=== PATIENT | male | born 1960 | race Caucasian/White ===

== ENCOUNTER → 2016-04-01 | Outpatient (CLI) | payer OTHER | LOC: M LAB 12:06 | PROVIDERS: ATTEND Family Medicine Addiction Medicine | DX: R32 Unspecified urinary incontinence (principal) ==

== ENCOUNTER 2016-05-12 08:45 | Outpatient (RCR) | payer OTHER | END 2016-05-13 | LOC: M OT 08:45 | PROVIDERS: ATTEND Orthopaedic Surgery | DX: Z51.89 Encounter for other specified aftercare (principal); S62.326A Displaced fracture of shaft of fifth metacarpal bone, right hand, initial encounter for closed fracture; X58.XXXA Exposure to other specified factors, initial encounter; Y92.9 Unspecified place or not applicable; Y93.9 Activity, unspecified; Y99.9 Unspecified external cause status ==

== ENCOUNTER → 2016-06-19 | Outpatient (CLI) | payer OTHER ==
--- NOTE | 2016-06-19 16:44 | REP ---
RIGHT HAND, FOUR VIEWS: HISTORY: Pain. COMPARISON: 01/28/2016 There is a healing fracture of the 5th metacarpal. The fracture is faintly seen. There is no acute fracture or dislocation. The joint spaces are normal in appearance. IMPRESSION: Healing fracture of the 5th metacarpal. Signed by Maxi Cody MD 06/19/2016 04:57 P
== END ==
LOC: M WUC 16:04
PROVIDERS: ATTEND Physician Assistant
DX: M25.541 Pain in joints of right hand (principal)

== ENCOUNTER 2016-11-20 16:17 | Emergency (ER) | payer OTHER ==
[~2016-11-20] VITALS: Ht 177.8 cm; Wt 84.1 kg
[2016-11-20 16:18] VITALS: BP 137/88
[2016-11-20] MEDS ORDERED: SERT-155 (16:30)
[2016-11-20] MEDS ORDERED: MAPA325T2 (16:30)
[2016-11-20] MEDS ORDERED: NAPR500T PO (16:57)
[2016-11-20] MEDS ORDERED: CYCL10TA PO (16:57)
== END 2016-11-20 17:15 | disposition home or self-care (01) ==
LOC: M ED 16:17
DX: S39.011A Strain of muscle, fascia and tendon of abdomen, initial encounter (principal); Z72.0 Tobacco use; X50.9XXA Other and unspecified overexertion or strenuous movements or postures, initial encounter; Y92.89 Other specified places as the place of occurrence of the external cause; Y93.89 Activity, other specified; Y99.9 Unspecified external cause status

== ENCOUNTER → 2016-11-27 | Outpatient (CLI) | payer MEDICAID, OTHER ==
[~2016-11-27] MED LIST: CYCL10TA PO; MAPA325T2; NAPR500T PO; SERT-155
== END ==
LOC: M SMT 09:28
PROVIDERS: ATTEND Nurse Practitioner Women's Health
DX: R39.15 Urgency of urination (principal)

== ENCOUNTER → 2016-12-02 | Outpatient (CLI) | payer OTHER, MEDICAID ==
--- NOTE | 2016-12-03 05:53 | REP ---
RENAL AND BLADDER ULTRASOUND: Real-time sonographic evaluation of the kidneys performed and demonstrates both kidneys to be normal in size and echotexture, right kidney measuring 12.1 x 5.6 x 4.9 cm and left kidney 11.4 x 4.9 x 6.3 cm. There is no hydronephrosis bilaterally. There is no renal mass or nephrolithiasis. Urinary bladder measures 7.0 x 8.7 x 7.4 cm with no mass or calculus. The volume is 236 mL. Post void residual is 185 mL. There are ureteral jets in the urinary bladder with Doppler color evaluation. IMPRESSION: Negative renal ultrasound. No mass or calculus is seen in the bladder. There is moderate post void residual. Signed by Ramos Vance MD 12/03/2016 09:40 A
== END ==
LOC: M SMT 14:46
PROVIDERS: ATTEND Nurse Practitioner Women's Health
DX: R39.15 Urgency of urination (principal)

== ENCOUNTER 2017-02-14 12:53 | Emergency (ER) | payer OTHER, MEDICAID ==
[~2017-02-14] VITALS: Ht 177.8 cm; Wt 88.6 kg
[2017-02-14] MEDS ORDERED: AMLO5TAB2 PO (13:04)
[2017-02-14] MEDS ORDERED: diphenhydrAMINE INJ 50MG/ML VIAL (J1200) IV STA (14:33)
[2017-02-14] MEDS ORDERED: METOCLOPRAMIDE INJ 10MG/2ML VIAL (J2765) IV ONE (14:45)
[2017-02-14] MEDS ORDERED: NS 1,000 ML IV ONE (14:45)
[2017-02-14 14:57] LABS: BASO # 0.1 10^3/uL (0.0-0.2); BASO % 0.4 % (0.0-1.0); EOS # 0.1 10^3/uL (0.0-0.50); EOS % 0.7 % (0.0-3.0); IMMATURE GRANULOCYTE % 0.4 % (0-0); LYMPH # 2.4 10^3/uL (1.5-4.5); LYMPH % 17.8 % (24.0-44.0); MEAN CORPUSCULAR HEMOGLOBIN 31.3 pg (27.0-33.0); MEAN CORPUSCULAR HGB CONC 34.4 g/dl (32.0-36.5); MONO % 7.5 % (0.0-5.0); NEUTROPHILS % 73.2 % (36.0-66.0); PLATELET COUNT, AUTOMATED 250 10^3/uL (150-450); RED CELL DISTRIBUTION WIDTH 14.1 % (11.5-14.5); WHITE BLOOD COUNT 13.7 10^3/uL (4.0-10.0)
--- NOTE | 2017-02-14 15:07 | REP ---
CT Head without contrast HISTORY: Altered mental status COMPARISON: 03/16/2012 There is no intraparenchymal hemorrhage, acute infarct, mass or midline shift. The ventricular system is normal in appearance. There is no extra cerebral collection. There is no fracture. The visualized sinuses are clear. IMPRESSION: There is no intracranial lesion. Signed by Maxi Cody MD 02/14/2017 02:59 P
[2017-02-14 15:27] LABS: ALBUMIN/GLOBULIN RATIO 1.25 (1.00-1.93); ALKALINE PHOSPHATASE 85 U/L (45-117); ALT/SGPT 31 U/L (12-78); ANION GAP 6 MEQ/L (8-16); AST/SGOT 19 U/L (7-37); BILIRUBIN,DIRECT < 0.1 MG/DL (0.0-0.2); BILIRUBIN,TOTAL 0.4 MG/DL (0.2-1.0); BLOOD UREA NITROGEN 21 MG/DL (7-18); CALCIUM LEVEL 8.7 MG/DL (8.5-10.1); CARBON DIOXIDE LEVEL 30 MEQ/L (21-32); CHLORIDE LEVEL 107 MEQ/L (98-107); CREATININE FOR GFR 0.99 MG/DL (0.70-1.30); GLOMERULAR FILTRATION RATE > 60.0 (>56); GLUCOSE, FASTING 101 MG/DL (70-105); POTASSIUM SERUM 4.6 MEQ/L (3.5-5.1); SODIUM LEVEL 143 MEQ/L (136-145); TOTAL PROTEIN 7.2 GM/DL (6.4-8.2)
[2017-02-14] MEDS ORDERED: KETOROLAC 30 MG/ML VIAL (J1885) IV ONE (15:30)
[2017-02-14] MEDS ORDERED: REGL10TA6 PO (15:51)
[2017-02-14 16:27] VITALS: BP 142/93
== END 2017-02-14 16:30 | disposition home or self-care (01) ==
LOC: M ED 12:53
DX: R51 Headache (principal); I10 Essential (primary) hypertension; Z79.899 Other long term (current) drug therapy; F17.210 Nicotine dependence, cigarettes, uncomplicated
CPT/HCPCS: 70450; 80048; 80076; 84443; 85025; 94760; 96374; 96375; 99284; J1200; J1885; J2765

== ENCOUNTER → 2017-02-26 | Outpatient (REF) | payer OTHER, MEDICAID ==
[~2017-02-26] MED LIST changes: +AMLO5TAB2 PO; +REGL10TA6 PO
[2017-02-26 15:29] LABS: ALBUMIN 4.1 GM/DL (3.2-5.2); ALBUMIN/GLOBULIN RATIO 1.28 (1.00-1.93); ALKALINE PHOSPHATASE 87 U/L (45-117); ALT/SGPT 45 U/L (12-78); ANION GAP 6 MEQ/L (8-16); AST/SGOT 24 U/L (7-37); BILIRUBIN,TOTAL 0.4 MG/DL (0.2-1.0); BLOOD UREA NITROGEN 13 MG/DL (7-18); CALCIUM LEVEL 9.1 MG/DL (8.5-10.1); CARBON DIOXIDE LEVEL 29 MEQ/L (21-32); CHLORIDE LEVEL 104 MEQ/L (98-107); CHOLESTEROL LEVEL 258 MG/DL (<200); CREATININE FOR GFR 1.01 MG/DL (0.70-1.30); GLOMERULAR FILTRATION RATE > 60.0 (>56); GLUCOSE, FASTING 79 MG/DL (70-105); POTASSIUM SERUM 4.3 MEQ/L (3.5-5.1); SODIUM LEVEL 139 MEQ/L (136-145); TOTAL PROTEIN 7.3 GM/DL (6.4-8.2); TRIGLYCERIDES LEVEL 277 MG/DL (<150)
== END ==
LOC: M LAB REF 14:50
PROVIDERS: ATTEND Family Medicine Addiction Medicine
DX: E78.5 Hyperlipidemia, unspecified (principal); I10 Essential (primary) hypertension

== ENCOUNTER 2018-06-07 08:28 | Emergency (ER) | payer MEDICAID, OTHER ==
[~2018-06-07] VITALS: Ht 177.8 cm; Wt 93.2 kg
[2018-06-07 08:28] VITALS: BP 146/86
[~2018-06-07 08:28] MED LIST changes: -AMLO5TAB2 PO; +AMLO5TAB6 PO; +NAPR-837 PO; -NAPR500T PO
[2018-06-07] MEDS ORDERED: ATOR1TAB21 (08:34)
[2018-06-07] MEDS ORDERED: LISI10TA4 (08:34)
[2018-06-07] MEDS ORDERED: IPRATROPIUM 0.5MG/ALBUTEROL 2.5MG INH SOL UD 3ML (DUONEB)(J7620) NEB ONE (09:30)
[2018-06-07] MEDS ORDERED: GI COCKTAIL 50ML BTL(HYOSCYAMINE/MAALOX/LIDOCAINE VISCOUS)(1:3:1) PO ONE (09:30)
--- NOTE | 2018-06-07 09:38 | REP ---
Chest x-ray: Two views. History: Abdomen pain. Comparison study: September 14, 2015. Findings: The lungs remain slightly hyperinflated but clear. There are small bullae in the apices. No infiltrate is seen. Pleural angles are sharp. Heart size is normal. There are mild degenerative changes in the thoracic spine. Impression: No active disease. Electronically Signed by Bob Mayes MD 06/07/2018 09:30 A
[2018-06-07 09:52] LABS: BASO # 0.1 10^3/uL (0.0-0.2); BASO % 0.4 % (0.0-1.0); EOS # 0.1 10^3/uL (0.0-0.50); EOS % 0.9 % (0.0-3.0); HEMATOCRIT 44.5 % (42.0-52.0); LYMPH # 2.7 10^3/uL (1.5-4.5); MEAN CORPUSCULAR HGB CONC 33.7 g/dl (32.0-36.5); MONO # 0.8 10^3/uL (0.0-0.8); MONO % 6.7 % (0.0-5.0); NEUTROPHILS % 68.7 % (36.0-66.0); PLATELET COUNT, AUTOMATED 220 10^3/uL (150-450); WHITE BLOOD COUNT 11.6 10^3/uL (4.0-10.0)
[2018-06-07 10:24] LABS: ALBUMIN 3.7 GM/DL (3.2-5.2); ALT/SGPT 23 U/L (12-78); BILIRUBIN,DIRECT < 0.1 MG/DL (0.0-0.2); BILIRUBIN,TOTAL 0.2 MG/DL (0.2-1.0); BLOOD UREA NITROGEN 13 MG/DL (7-18); CALCIUM LEVEL 9.1 MG/DL (8.5-10.1); CARBON DIOXIDE LEVEL 29 MEQ/L (21-32); CHLORIDE LEVEL 107 MEQ/L (98-107); CPK CREATINE PHOSPHOKINASE 160 U/L (39-308); CREATININE FOR GFR 0.96 MG/DL (0.70-1.30); GLOMERULAR FILTRATION RATE > 60.0 (>56); GLUCOSE, FASTING 92 MG/DL (70-100); LIPASE 354 U/L (73-393); MB/CK RELATIVE INDEX 0.75 (< OR =4); POTASSIUM SERUM 4.4 MEQ/L (3.5-5.1); SODIUM LEVEL 141 MEQ/L (136-145); TOTAL PROTEIN 6.9 GM/DL (6.4-8.2); TROPONIN I < 0.02 NG/ML (< 0.10)
[2018-06-07] MEDS ORDERED: PEPC1TAB5 PO (10:33)
[2018-06-07] MEDS ORDERED: SUCR1SS PO (10:33)
[2018-06-07] MEDS ORDERED: ALBU17IN2 INH (10:34)
--- NOTE | 2018-06-07 21:09 | ECGEPIP ---
Stationary ECG Study [facility] [place] - ED Test Date: 2018-06-07 Pat Name: TAMARA GURROLA Department: Room: - Gender: M [address] Project Manager: : [id number] Requested By: Rick Melgar Order Number: [id number] Reading MD: Emilie Tsai Measurements Intervals [place] Rate: 48 P: 16 LA: 169 QRS: 18 QRSD: 105 T: 16 QT: 408 QTc: 368 Interpretive Statements SINUS BRADYCARDIA LOW VOLTAGE DELAYED R PROGRESSION DECREASED RATE 04/10/14 Electronically Signed On 06-07-2018 21:09:44 EDT by Emilie Tsai
== END 2018-06-07 10:59 | disposition home or self-care (01) ==
LOC: M ED 08:28
DX: J06.9 Acute upper respiratory infection, unspecified (principal); R00.1 Bradycardia, unspecified; I10 Essential (primary) hypertension; F17.200 Nicotine dependence, unspecified, uncomplicated; Z91.14 Patient's other noncompliance with medication regimen; Z79.899 Other long term (current) drug therapy

== ENCOUNTER → 2018-08-02 | Outpatient (REF) | payer OTHER ==
[~2018-08-02] MED LIST changes: +ALBU17IN2 INH; +ATOR1TAB21; +LISI10TA4; +PEPC1TAB5 PO; +SUCR1SS PO
[2018-08-02 19:31] LABS: BASO # 0.1 10^3/uL (0.0-0.2); BASO % 0.3 % (0.0-1.0); EOS # 0.1 10^3/uL (0.0-0.50); EOS % 0.6 % (0.0-3.0); HEMATOCRIT 46.4 % (42.0-52.0); HEMOGLOBIN 15.8 g/dl (13.5-17.5); LYMPH # 2.6 10^3/uL (1.5-4.5); LYMPH % 17.8 % (24.0-44.0); MEAN CORPUSCULAR HEMOGLOBIN 31.1 pg (27.0-33.0); MEAN CORPUSCULAR HGB CONC 34.1 g/dl (32.0-36.5); MEAN CORPUSCULAR VOLUME 91.3 fl (80.0-96.0); MONO # 0.8 10^3/uL (0.0-0.8); MONO % 5.4 % (0.0-5.0); NEUTROPHILS % 75.6 % (36.0-66.0); PLATELET COUNT, AUTOMATED 246 10^3/uL (150-450); RED BLOOD COUNT 5.08 10^6/uL (4.30-6.10); WHITE BLOOD COUNT 14.5 10^3/uL (4.0-10.0)
[2018-08-02 20:29] LABS: ALBUMIN 4.2 GM/DL (3.2-5.2); ALT/SGPT 34 U/L (12-78); BILIRUBIN,TOTAL 0.4 MG/DL (0.2-1.0); BLOOD UREA NITROGEN 12 MG/DL (7-18); CALCIUM LEVEL 9.7 MG/DL (8.5-10.1); CARBON DIOXIDE LEVEL 26 MEQ/L (21-32); CHLORIDE LEVEL 106 MEQ/L (98-107); CHOLESTEROL LEVEL 269 MG/DL (<200); CREATININE FOR GFR 0.94 MG/DL (0.70-1.30); FREE T4 0.97 NG/DL (0.76-1.46); GLOMERULAR FILTRATION RATE > 60.0 (>56); GLUCOSE, FASTING 121 MG/DL (70-100); HDL CHOLESTEROL 37 MG/DL (>40); LDL CHOLESTEROL 189 MG/DL (<100); NON-HDL-C 232 MG/DL; POTASSIUM SERUM 4.1 MEQ/L (3.5-5.1); SODIUM LEVEL 139 MEQ/L (136-145); TOTAL PROTEIN 7.1 GM/DL (6.4-8.2); TRIGLYCERIDES LEVEL 213 MG/DL (<150)
[2018-08-02 21:23] LABS: TOTAL 25(OH) VITAMIN D 13.1 NG/ML (30.0-100.0)
[2018-08-02 21:59] LABS: HEMOGLOBIN A1c 5.7 %
[2018-08-05 00:07] LABS: Lyme Disease IgG/IgM Antibodie <0.91 ISR (0.00-0.90); Lyme Disease IgM Ab Quantitati <0.80 index (0.00-0.79)
== END ==
LOC: M LAB REF 16:42
PROVIDERS: ATTEND Family Medicine
DX: Z13.228 Encounter for screening for other metabolic disorders (principal); Z12.5 Encounter for screening for malignant neoplasm of prostate

== ENCOUNTER → 2019-01-25 | Outpatient (REF) | payer OTHER, MEDICAID ==
[~2019-01-25] MED LIST changes: -ALBU17IN2 INH; +PROV108A INH; -SERT-155; +SERT50TA29
[2019-01-25 12:50] LABS: ALBUMIN 3.8 GM/DL (3.2-5.2); ALT/SGPT 43 U/L (12-78); BILIRUBIN,TOTAL 0.3 MG/DL (0.2-1.0); BLOOD UREA NITROGEN 14 MG/DL (7-18); CALCIUM LEVEL 8.8 MG/DL (8.5-10.1); CARBON DIOXIDE LEVEL 27 MEQ/L (21-32); CHLORIDE LEVEL 105 MEQ/L (98-107); CHOLESTEROL LEVEL 224 MG/DL (<200); CHOLESTEROL RISK RATIO 4.571 (<5); CREATININE FOR GFR 0.88 MG/DL (0.70-1.30); GLOMERULAR FILTRATION RATE > 60.0 (>56); GLUCOSE, FASTING 94 MG/DL (70-100); HDL CHOLESTEROL 49 MG/DL (>40); LDL CHOLESTEROL 130 MG/DL (<100); NON-HDL-C 175 MG/DL; POTASSIUM SERUM 3.6 MEQ/L (3.5-5.1); SODIUM LEVEL 140 MEQ/L (136-145); TOTAL PROTEIN 6.6 GM/DL (6.4-8.2); TRIGLYCERIDES LEVEL 223 MG/DL (<150)
[2019-01-25 13:31] LABS: HEMOGLOBIN A1c 5.8 %
== END ==
LOC: M LAB REF 12:05
PROVIDERS: ATTEND Family Medicine
DX: R73.03 Prediabetes (principal); E78.5 Hyperlipidemia, unspecified

== ENCOUNTER → 2019-02-04 | Outpatient (CLI) | payer OTHER ==
--- NOTE | 2019-02-04 12:09 | REP ---
MRI lumbar spine: Indication: Pulmonary nodule. Metastatic workup. Low back pain. Comparison: CT scan dated 02/20/2016. Technique: Multiplanar short and long TR sequences of the lumbar spine were obtained without IV Gadolinium. Findings: There is mild straightening of the lumbar lordosis. Sclerotic focus within the superior aspect of L1 is stable compared to the previous study. No worrisome marrow signal is present. The visualized cord is normal. Disc desiccation and disc space narrowing are present throughout. No significant paraspinal soft tissue abnormalities are detected. L1/L2: There is no disc herniation or significant spinal canal / neural foraminal narrowing. L2/L3: There is a diffuse disc bulge. Bilateral facet arthropathy is present. There is mild narrowing of the spinal canal and bilateral neural foramina. L3/L4: There is a posterior central disc protrusion superimposed on a diffuse disc bulge. Mild bilateral facet arthropathy is present. There is no nerve root impingement. Overall mild narrowing of the spinal canal and neural foramina is present. L4/L5: Diffuse disc bulge, most apparent anteriorly and bilateral facet arthropathy are present with mild to moderate recess and bilateral neural foraminal narrowing. Mild bilateral facet arthropathy is present. L5/S1: There is a far right lateral disc protrusion which does contact the exiting right L5 nerve root. Mild diffuse disc bulge is otherwise noted with mild spinal canal and left neural foraminal narrowing. Impression: Far right lateral L5/S1 disc herniation. Additional multilevel degenerative sequelae as described. Electronically Signed by Guanako Kirby DO 02/04/2019 12:00 P
== END ==
LOC: M RAD 10:00
PROVIDERS: ATTEND Family Medicine
DX: M51.27 Other intervertebral disc displacement, lumbosacral region (principal); M51.86 Other intervertebral disc disorders, lumbar region; M51.36 Other intervertebral disc degeneration, lumbar region

== ENCOUNTER → 2019-04-25 | Outpatient (REF) | payer OTHER, MEDICAID | LOC: M LAB REF 18:25 | PROVIDERS: ATTEND Physician Assistant | DX: L72.9 Follicular cyst of the skin and subcutaneous tissue, unspecified (principal) ==

== ENCOUNTER 2019-08-05 09:25 | Emergency (ER) | payer OTHER, MEDICAID ==
[~2019-08-05] VITALS: Ht 177.8 cm; Wt 90.7 kg
[~2019-08-05 09:25] MED LIST changes: +CYCL-707 PO; -CYCL10TA PO; -MAPA325T2; +MAPA325T8
[2019-08-05 09:26] VITALS: BP 130/98
[2019-08-05] MEDS ORDERED: AMLO10TA5 (09:37)
--- NOTE | 2019-08-05 10:36 | REP ---
LEFT HAND, FOUR VIEWS: There is a fracture at the anterior base of the 5th middle phalanx, seen on the lateral view. There is no other evidence of acute fracture or dislocation. Electronically Signed by Ramos Vance MD 08/05/2019 11:00 A
== END 2019-08-05 10:31 | disposition home or self-care (01) ==
LOC: M ED 09:25
DX: S62.657A Nondisplaced fracture of middle phalanx of left little finger, initial encounter for closed fracture (principal); W10.8XXA Fall (on) (from) other stairs and steps, initial encounter; Y92.098 Other place in other non-institutional residence as the place of occurrence of the external cause; I10 Essential (primary) hypertension; F41.9 Anxiety disorder, unspecified; F32.9 Major depressive disorder, single episode, unspecified; E78.9 Disorder of lipoprotein metabolism, unspecified; Z79.899 Other long term (current) drug therapy

== ENCOUNTER → 2019-09-23 | Outpatient (REF) | payer OTHER, MEDICAID ==
[~2019-09-23] MED LIST changes: +AMLO1TAB24 PO; +AMLO1TAB25; -AMLO5TAB6 PO
[2019-09-23 12:21] LABS: BASO # 0.1 10^3/uL (0.0-0.2); BASO % 0.7 % (0.0-1.0); EOS # 0.1 10^3/uL (0.0-0.5); EOS % 1.3 % (0.0-3.0); HEMATOCRIT 47.6 % (42.0-52.0); HEMOGLOBIN 15.7 g/dl (13.5-17.5); LYMPH # 2.2 10^3/uL (1.5-5.0); LYMPH % 21.7 % (24.0-44.0); MEAN CORPUSCULAR HEMOGLOBIN 30.5 pg (27.0-33.0); MEAN CORPUSCULAR VOLUME 92.4 fl (80.0-96.0); MONO # 0.8 10^3/uL (0.0-0.8); MONO % 8.2 % (0.0-5.0); NEUTROPHILS # 6.8 10^3/uL (1.5-8.5); NEUTROPHILS % 67.7 % (36.0-66.0); PLATELET COUNT, AUTOMATED 230 10^3/uL (150-450); RED BLOOD COUNT 5.15 10^6/uL (4.30-6.10); WHITE BLOOD COUNT 10.1 10^3/uL (4.0-10.0)
[2019-09-23 12:33] LABS: ALBUMIN 3.7 GM/DL (3.2-5.2); ALT/SGPT 35 U/L (12-78); BILIRUBIN,TOTAL 0.3 MG/DL (0.2-1.0); BLOOD UREA NITROGEN 13 MG/DL (7-18); CALCIUM LEVEL 9.2 MG/DL (8.5-10.1); CARBON DIOXIDE LEVEL 28 MEQ/L (21-32); CHLORIDE LEVEL 108 MEQ/L (98-107); CHOLESTEROL LEVEL 322 MG/DL (<200); CREATININE FOR GFR 0.94 MG/DL (0.70-1.30); FREE T4 0.93 NG/DL (0.76-1.46); GLOMERULAR FILTRATION RATE > 60.0 (>56); GLUCOSE, FASTING 91 MG/DL (70-100); HDL CHOLESTEROL 35 MG/DL (>40); LDL CHOLESTEROL 259 MG/DL (<100); NON-HDL-C 287 MG/DL; POTASSIUM SERUM 4.6 MEQ/L (3.5-5.1); SODIUM LEVEL 141 MEQ/L (136-145); TOTAL PROTEIN 7.2 GM/DL (6.4-8.2); TRIGLYCERIDES LEVEL 141 MG/DL (<150)
[2019-09-23 12:35] LABS: TOTAL 25(OH) VITAMIN D 15.4 NG/ML (30.0-100.0)
[2019-09-23 13:09] LABS: HEMOGLOBIN A1c 5.9 %
== END ==
LOC: M LAB REF 11:08
PROVIDERS: ATTEND Physician Assistant
DX: R73.03 Prediabetes (principal); E78.5 Hyperlipidemia, unspecified; I10 Essential (primary) hypertension

== ENCOUNTER → 2019-12-23 | Outpatient (REF) | payer OTHER, MEDICAID ==
[2019-12-23 13:13] LABS: ALBUMIN 3.9 GM/DL (3.2-5.2); ALT/SGPT 23 U/L (12-78); BILIRUBIN,TOTAL 0.3 MG/DL (0.2-1.0); BLOOD UREA NITROGEN 11 MG/DL (7-18); CALCIUM LEVEL 9.7 MG/DL (8.5-10.1); CARBON DIOXIDE LEVEL 31 MEQ/L (21-32); CHLORIDE LEVEL 108 MEQ/L (98-107); CHOLESTEROL LEVEL 230 MG/DL (<200); CHOLESTEROL RISK RATIO 6.969 (<5); CREATININE FOR GFR 0.92 MG/DL (0.70-1.30); GLOMERULAR FILTRATION RATE > 60.0 (>56); GLUCOSE, FASTING 97 MG/DL (70-100); HDL CHOLESTEROL 33 MG/DL (>40); LDL CHOLESTEROL 164 MG/DL (<100); NON-HDL-C 197 MG/DL; POTASSIUM SERUM 4.5 MEQ/L (3.5-5.1); SODIUM LEVEL 141 MEQ/L (136-145); TOTAL PROTEIN 7.1 GM/DL (6.4-8.2); TRIGLYCERIDES LEVEL 167 MG/DL (<150)
[2019-12-23 13:23] LABS: TOTAL 25(OH) VITAMIN D 21.2 NG/ML (30.0-100.0)
[2019-12-23 14:02] LABS: HEMOGLOBIN A1c 5.5 %
== END ==
LOC: M LAB REF 12:32
PROVIDERS: ATTEND Physician Assistant
DX: R73.03 Prediabetes (principal); E78.5 Hyperlipidemia, unspecified; E55.9 Vitamin D deficiency, unspecified

== ENCOUNTER → 2020-02-21 | Outpatient (REF) | payer OTHER, MEDICAID | LOC: M LAB REF 17:24 | PROVIDERS: ATTEND Dermatology | DX: D49.2 Neoplasm of unspecified behavior of bone, soft tissue, and skin (principal) ==

== ENCOUNTER → 2020-07-05 | Outpatient (CLI) | payer SELFPAY ==
[~2020-07-05] MED LIST changes: +LISI10TA22; -LISI10TA4
== END ==
LOC: M LABSMTC 12:45
PROVIDERS: ATTEND Pediatrics
DX: Z20.822 Contact with and (suspected) exposure to COVID-19 (principal)

== ENCOUNTER → 2021-01-29 | Outpatient (CLI) | payer OTHER ==
--- NOTE | 2021-01-29 09:57 | REP ---
INDICATION: SMOKER. COMPARISON: 03/14/2005 the only prior TECHNIQUE: Axial noncontrast images from the thoracic inlet to the upper abdomen using low-dose lung screening technique (LDCT). As per the protocol only lung window images were sent to the read station for interpretation. FINDINGS: There is biapical pleuroparenchymal scarring with pleural blebs and parenchymal bulla increased from the prior exam. General emphysematous changes are noted throughout the lung tompkins increased from the prior exam. There is cylindrical bronchiectasis which has developed since the last exam. There is a 5 mm size nodule in the left lower lobe. Grossly the mediastinum and pulmonary todd are unchanged. Grossly the imaged osseous structures and imaged upper abdomen are unchanged IMPRESSION: 1. 5 mm size nodule in the left lower lobe. According to the revised Fleischner society criteria this represents a lung rads category 3 nodule for which a six-month follow-up chest CT is recommended. 2. Emphysematous changes and other chronic lung field changes as described above. <Electronically signed by Quang Valerio > 01/29/21 [id number]
== END ==
LOC: M RAD 08:16
PROVIDERS: ATTEND Physician Assistant
DX: Z72.0 Tobacco use (principal); R91.1 Solitary pulmonary nodule; J43.9 Emphysema, unspecified

== ENCOUNTER 2021-06-22 12:18 | Emergency (ER) | payer OTHER ==
[~2021-06-22] VITALS: Ht 177.8 cm; Wt 93.0 kg
[2021-06-22] MEDS ORDERED: KETOROLAC 60MG 2ML VIAL IM ONE (13:05)
[2021-06-22] MEDS ORDERED: IBUP80TA PO (14:34)
[2021-06-22 14:59] VITALS: BP 135/75
== END 2021-06-22 15:23 | disposition home or self-care (01) ==
LOC: M ED 12:18
DX: S39.012A Strain of muscle, fascia and tendon of lower back, initial encounter (principal); S73.102A Unspecified sprain of left hip, initial encounter; V18.9XXA Unspecified pedal cyclist injured in noncollision transport accident in traffic accident, initial encounter; Y92.89 Other specified places as the place of occurrence of the external cause; I10 Essential (primary) hypertension; E78.5 Hyperlipidemia, unspecified; F33.9 Major depressive disorder, recurrent, unspecified; F41.9 Anxiety disorder, unspecified; K21.9 Gastro-esophageal reflux disease without esophagitis; Z79.899 Other long term (current) drug therapy; F17.210 Nicotine dependence, cigarettes, uncomplicated; F12.20 Cannabis dependence, uncomplicated
CPT/HCPCS: 72110; 73502; 96372; 99283; J1885

== ENCOUNTER 2021-11-25 10:50 | Emergency (ER) | payer OTHER ==
[~2021-11-25] VITALS: Ht 165.1 cm; Wt 93.0 kg
[~2021-11-25 10:50] MED LIST changes: +ALBU6.7H6 INH; -AMLO1TAB25; +AMLO1TAB25 PO; +ASPI81CH33 PO; +IBUP80TA PO; -LISI10TA22; +LISI10TA22 PO; -PROV108A INH; +VITA200016 PO
[2021-11-25 11:28] VITALS: BP 138/91
[2021-11-25] MEDS ORDERED: LORazepam 1 MG TAB PO STA (12:17)
[2021-11-25 12:28] LABS: HEMATOCRIT 46.2 % (42.0-52.0); HEMOGLOBIN 15.6 g/dl (13.5-17.5); MEAN CORPUSCULAR HEMOGLOBIN 30.5 pg (27.0-33.0); MEAN CORPUSCULAR HGB CONC 33.8 g/dl (32.0-36.5); MEAN CORPUSCULAR VOLUME 90.2 fl (80.0-96.0); PLATELET COUNT, AUTOMATED 282 10^3/uL (150-450); RED BLOOD COUNT 5.12 10^6/uL (4.30-6.10); WHITE BLOOD COUNT 16.6 10^3/uL (4.0-10.0)
[2021-11-25 13:08] LABS: ACETAMINOPHEN LEVEL < 2.0 UG/ML (10.0-30.0); ALBUMIN 4.2 GM/DL (3.2-5.2); ALT/SGPT 35 U/L (12-78); BILIRUBIN,DIRECT 0.1 MG/DL (0.0-0.2); BILIRUBIN,TOTAL 0.6 MG/DL (0.2-1.0); BLOOD UREA NITROGEN 13 MG/DL (7-18); CALCIUM LEVEL 9.7 MG/DL (8.5-10.1); CARBON DIOXIDE LEVEL 27 MEQ/L (21-32); CHLORIDE LEVEL 105 MEQ/L (98-107); CREATININE FOR GFR 0.95 MG/DL (0.70-1.30); ETHYL ALCOHOL (ETHANOL) 0.003 % (0.000-0.010); GLOMERULAR FILTRATION RATE > 60.0 (>56); GLUCOSE, FASTING 101 MG/DL (70-100); POTASSIUM SERUM 3.9 MEQ/L (3.5-5.1); SALICYLATE LEVEL 2.4 MG/DL (5.0-30.0); SODIUM LEVEL 139 MEQ/L (136-145); TOTAL PROTEIN 7.5 GM/DL (6.4-8.2)
[2021-11-25 15:40] LABS: RSV AMPLIFICATION NEGATIVE (NEGATIVE)
[2021-11-25 16:13] LABS: AMPHETAMINES LEVEL URINE NEGATIVE (NEGATIVE); BARBITURATES URINE NEGATIVE (NEGATIVE); BENZODIAZEPINES URINE NEGATIVE (NEGATIVE); CANNABINOIDS URINE POSITIVE (NEGATIVE); COCAINE METABOLITE URINE NEGATIVE (NEGATIVE); METHADONE URINE NEGATIVE (NEGATIVE); OPIATES URINE NEGATIVE (NEGATIVE); PHENCYCLIDINE URINE NEGATIVE (NEGATIVE)
[2021-11-26] MEDS ORDERED: ASPI81TA26 PO (09:36)
[2021-11-26] MEDS ORDERED: ATOR40TA75 PO (09:36)
== END 2021-11-25 16:07 | disposition left against medical advice (07) ==
LOC: M ED 10:50
DX: Z04.6 Encounter for general psychiatric examination, requested by authority (principal); I10 Essential (primary) hypertension; F32.A Depression, unspecified; F41.9 Anxiety disorder, unspecified; E78.9 Disorder of lipoprotein metabolism, unspecified; F17.200 Nicotine dependence, unspecified, uncomplicated

== ENCOUNTER 2021-11-25 16:08 | Inpatient (IN) | payer OTHER ==
[~2021-11-25] VITALS: Ht 177.8 cm; Wt 89.9 kg
[2021-11-25] MEDS ORDERED: MIDAZOLAM INJ 2MG/2ML VIAL (J2250 PER 1MG) IM ONE (16:20)
[2021-11-25] MEDS ORDERED: HALOPERIDOL 5MG/ML VIAL (J1630 PER 1) IM ONE (16:20)
[2021-11-25] MEDS ORDERED: LORazepam 2 MG TAB PO STA (19:49)
[2021-11-26] MEDS ORDERED: ASPI81TA26 PO (09:36)
[2021-11-26] MEDS ORDERED: ATOR40TA75 PO (09:36)
[2021-11-26] MEDS ORDERED: HOME MED LIST COMPLETE! XX SCH (09:40)
[2021-11-26] MEDS: NICOTINE POLACRILEX 2 MG GUM PO PRN ×2 (13:51→21:03)
[2021-11-27 16:07] LABS: RSV AMPLIFICATION NEGATIVE (NEGATIVE)
[2021-11-27] MEDS: NICOTINE POLACRILEX 2 MG GUM PO PRN (16:32)
[2021-11-27] MEDS ORDERED: hydrOXYzine 50 MG TAB PO ONE (21:15)
[2021-11-28] MEDS ORDERED: LORazepam 2 MG TAB PO ONE (10:30)
[2021-11-28] MEDS ORDERED: MOM 30ML SUSPENSION UDC PO PRN (18:45)
[2021-11-28] MEDS ORDERED: LORazepam 0.5 MG TAB PO PRN (18:45)
[2021-11-28] MEDS ORDERED: MAALOX 30 ML SUSP *UDC PO PRN (18:45)
[2021-11-28] MEDS ORDERED: ACETAMINOPHEN TAB 650MG DOSE (2X325MG) PO PRN (18:45)
[2021-11-28] MEDS ORDERED: OLANZapine ORAL DISINTEGRATING TAB 5MG PO PRN (18:45)
[2021-11-28] MEDS: NICOTINE POLACRILEX 2 MG GUM PO PRN (20:25)
[2021-11-28 23:38] VITALS: BP 168/98
[2021-11-29 06:56] VITALS: BP 133/75
[2021-11-29] MEDS: NICOTINE 21MG/24HR 1 EA TRANSDERMAL TD SCH (08:54)
[2021-11-29] MEDS: ATORVASTATIN 20 MG TAB PO SCH (08:57)
[2021-11-29] MEDS: ASPIRIN 81MG ENTERIC TABLET PO SCH (08:57)
[2021-11-29] MEDS: VITAMIN D 1,000 INTERNATIONAL UNITS TABLET PO SCH (08:57)
[2021-11-29] MEDS: busPIRone 5 MG TAB PO SCH ×2 (12:01→20:21)
[2021-11-29 16:29] VITALS: BP 138/83
[2021-11-30 06:08] VITALS: BP 120/65
[2021-11-30] MEDS: NICOTINE 21MG/24HR 1 EA TRANSDERMAL TD SCH (07:39)
[2021-11-30] MEDS: VITAMIN D 1,000 INTERNATIONAL UNITS TABLET PO SCH (07:42)
[2021-11-30] MEDS: ATORVASTATIN 20 MG TAB PO SCH (07:43)
[2021-11-30] MEDS: busPIRone 5 MG TAB PO SCH ×2 (07:44→20:23)
[2021-11-30] MEDS: ASPIRIN 81MG ENTERIC TABLET PO SCH (07:44)
[2021-11-30] MEDS ORDERED: NICOTINE POLACRILEX 2 MG GUM PO PRN (11:00)
[2021-11-30 16:22] VITALS: BP 137/87
[2021-11-30] MEDS: traZODone 50 MG TAB PO PRN (20:23)
[2021-12-01 06:45] VITALS: BP 157/79
[2021-12-01] MEDS: ATORVASTATIN 20 MG TAB PO SCH (07:44)
[2021-12-01] MEDS: busPIRone 5 MG TAB PO SCH ×2 (07:45→20:28)
[2021-12-01] MEDS: VITAMIN D 1,000 INTERNATIONAL UNITS TABLET PO SCH (07:45)
[2021-12-01] MEDS: ASPIRIN 81MG ENTERIC TABLET PO SCH (07:45)
[2021-12-01 16:32] VITALS: BP 139/82
[2021-12-01] MEDS: traZODone 50 MG TAB PO PRN (20:28)
[2021-12-02 06:20] VITALS: BP 123/70
[2021-12-02] MEDS: ATORVASTATIN 20 MG TAB PO SCH (08:03)
[2021-12-02] MEDS: ASPIRIN 81MG ENTERIC TABLET PO SCH (08:03)
[2021-12-02] MEDS: busPIRone 5 MG TAB PO SCH (08:03)
[2021-12-02 08:04] VITALS: BP 123/70
[2021-12-02] MEDS: VITAMIN D 1,000 INTERNATIONAL UNITS TABLET PO SCH (08:04)
[2021-12-02] MEDS ORDERED: TRAZ-252 PO (08:21)
[2021-12-02] MEDS ORDERED: NICO2GUM PO (08:21)
[2021-12-02] MEDS ORDERED: BUSP5TA PO (08:21)
== END 2021-12-02 10:30 | disposition home or self-care (01) | DRG 754 ==
LOC: M ED 16:08 → M ED INP 11-28 16:09 → M PSY 11-28 23:30
PROVIDERS: ADMIT Psychiatry & Neurology Psychiatry; ATTEND Psychiatry & Neurology Psychiatry
DX: F32.A Depression, unspecified (principal); F63.81 Intermittent explosive disorder; F31.81 Bipolar II disorder; F17.210 Nicotine dependence, cigarettes, uncomplicated; F43.10 Post-traumatic stress disorder, unspecified; R45.851 Suicidal ideations; J43.9 Emphysema, unspecified; I10 Essential (primary) hypertension; R91.8 Other nonspecific abnormal finding of lung field; Z59.89 Other problems related to housing and economic circumstances; Z56.0 Unemployment, unspecified; E78.5 Hyperlipidemia, unspecified; Z79.82 Long term (current) use of aspirin; Z79.899 Other long term (current) drug therapy; Z20.822 Contact with and (suspected) exposure to COVID-19

== ENCOUNTER 2022-09-13 10:48 | Emergency (ER) | payer MEDICAID, OTHER ==
[~2022-09-13] VITALS: Ht 177.8 cm; Wt 93.8 kg
[~2022-09-13 10:48] MED LIST changes: +ASPI81TA26 PO; +ATOR40TA75 PO; +BUSP5TA PO; +NICO2GUM PO; +TRAZ-252 PO
[2022-09-13 12:09] VITALS: BP 140/90; TEMP 97.6; O2SAT 97
== END 2022-09-13 12:13 | disposition home or self-care (01) ==
LOC: M ED 10:48
DX: S43.402A Unspecified sprain of left shoulder joint, initial encounter (principal); S73.102A Unspecified sprain of left hip, initial encounter; W17.89XA Other fall from one level to another, initial encounter; Y92.009 Unspecified place in unspecified non-institutional (private) residence as the place of occurrence of the external cause; Y93.89 Activity, other specified; Y99.8 Other external cause status; Z79.82 Long term (current) use of aspirin; Z79.899 Other long term (current) drug therapy; I10 Essential (primary) hypertension; E78.5 Hyperlipidemia, unspecified; J44.9 Chronic obstructive pulmonary disease, unspecified; K21.9 Gastro-esophageal reflux disease without esophagitis; F17.200 Nicotine dependence, unspecified, uncomplicated

== ENCOUNTER 2023-05-09 19:22 | Emergency (ER) | payer OTHER ==
[~2023-05-09] VITALS: Ht 177.8 cm; Wt 92.6 kg
[2023-05-09 22:54] LABS: BASO # 0.1 10^3/uL (0.0-0.2); BASO % 0.4 % (0.0-1.0); EOS # 0.1 10^3/uL (0.0-0.5); EOS % 0.4 % (0.0-3.0); HEMOGLOBIN 16.4 g/dl (13.5-17.5); LYMPH # 3.1 10^3/uL (1.5-5.0); LYMPH % 22.9 % (24.0-44.0); MEAN CORPUSCULAR HEMOGLOBIN 31.2 pg (27.0-33.0); MEAN CORPUSCULAR HGB CONC 34.9 g/dl (32.0-36.5); MEAN CORPUSCULAR VOLUME 89.4 fl (80.0-96.0); MONO # 0.9 10^3/uL (0.0-0.8); MONO % 6.3 % (2.0-8.0); NEUTROPHILS # 9.6 10^3/uL (1.5-8.5); NEUTROPHILS % 69.6 % (36.0-66.0); PLATELET COUNT, AUTOMATED 283 10^3/uL (150-450); RED BLOOD COUNT 5.26 10^6/uL (4.30-6.10); WHITE BLOOD COUNT 13.7 10^3/uL (4.0-10.0)
[2023-05-09 23:26] LABS: ETHYL ALCOHOL (ETHANOL) 0.005 % (0.000-0.010)
[2023-05-09 23:28] LABS: ALBUMIN 4.5 G/DL (3.2-5.2); ALKALINE PHOSPHATASE 91 U/L (46-116); ALT/SGPT 38 U/L (7.0-40); AST/SGOT 26 U/L (<34); BILIRUBIN,DIRECT 0.1 MG/DL (<0.4); BILIRUBIN,TOTAL 0.5 MG/DL (0.3-1.2); BLOOD UREA NITROGEN 12 MG/DL (9-23); CALCIUM LEVEL 9.8 MG/DL (8.3-10.6); CARBON DIOXIDE LEVEL 25 MMOL/L (20-31); CHLORIDE LEVEL 104 MMOL/L (98-107); CREATININE FOR GFR 0.71 MG/DL (0.70-1.30); GLOMERULAR FILTRATION RATE > 60.0 (>49); GLUCOSE, FASTING 103 MG/DL (74-106); POTASSIUM SERUM 4.6 MMOL/L (3.5-5.1); SODIUM LEVEL 138 MMOL/L (136-145); TOTAL PROTEIN 7.7 G/DL (5.7-8.2)
[2023-05-10 00:32] LABS: AMPHETAMINES LEVEL URINE NEGATIVE (NEGATIVE); BARBITURATES URINE NEGATIVE (NEGATIVE); COCAINE METABOLITE URINE NEGATIVE (NEGATIVE); METHADONE URINE NEGATIVE (NEGATIVE); OPIATES URINE NEGATIVE (NEGATIVE); PHENCYCLIDINE URINE NEGATIVE (NEGATIVE)
[2023-05-10 00:33] LABS: BENZODIAZEPINES URINE NEGATIVE (NEGATIVE)
[2023-05-10 00:34] LABS: CANNABINOIDS URINE POSITIVE (NEGATIVE)
[2023-05-10] MEDS ORDERED: MECL-209 PO (01:02)
[2023-05-10 01:09] VITALS: BP 142/90; TEMP 97.5; O2SAT 98
== END 2023-05-10 02:04 | disposition home or self-care (01) ==
LOC: M ED 19:22
DX: H81.10 Benign paroxysmal vertigo, unspecified ear (principal); F12.90 Cannabis use, unspecified, uncomplicated; I10 Essential (primary) hypertension; J32.9 Chronic sinusitis, unspecified; F17.200 Nicotine dependence, unspecified, uncomplicated; Z79.899 Other long term (current) drug therapy; Z79.82 Long term (current) use of aspirin

== ENCOUNTER 2023-09-07 09:00 | Emergency (ER) | payer OTHER ==
[~2023-09-07] VITALS: Ht 177.8 cm; Wt 90.1 kg
[2023-09-07 09:00] VITALS: BP 150/82; TEMP 98.2; O2SAT 97
[~2023-09-07 09:00] MED LIST changes: +MECL-209 PO
[2023-09-07] MEDS ORDERED: GABA-282 (09:25)
[2023-09-07 12:11] LABS: HEMATOCRIT 46.5 % (42.0-52.0); HEMOGLOBIN 15.3 g/dl (13.5-17.5); MEAN CORPUSCULAR HEMOGLOBIN 30.3 pg (27.0-33.0); MEAN CORPUSCULAR HGB CONC 32.9 g/dl (32.0-36.5); MEAN CORPUSCULAR VOLUME 92.1 fl (80.0-96.0); PLATELET COUNT, AUTOMATED 254 10^3/uL (150-450); RED BLOOD COUNT 5.05 10^6/uL (4.30-6.10); WHITE BLOOD COUNT 12.5 10^3/uL (4.0-10.0)
[2023-09-07 12:38] LABS: BLOOD UREA NITROGEN 9 MG/DL (9-23); CALCIUM LEVEL 9.4 MG/DL (8.3-10.6); CARBON DIOXIDE LEVEL 32 MMOL/L (20-31); CHLORIDE LEVEL 104 MMOL/L (98-107); CREATININE FOR GFR 0.86 MG/DL (0.70-1.30); GLOMERULAR FILTRATION RATE > 60.0 (>49); GLUCOSE, FASTING 101 MG/DL (74-106); POTASSIUM SERUM 4.6 MMOL/L (3.5-5.1); SODIUM LEVEL 137 MMOL/L (136-145)
[2023-09-09 18:49] LABS: LYME TOTAL ANTIBODY CIA <= 0.90 Index (<=0.90)
== END 2023-09-07 13:19 | disposition home or self-care (01) ==
LOC: M ED 09:00
DX: R10.11 Right upper quadrant pain (principal); I11.9 Hypertensive heart disease without heart failure; J44.9 Chronic obstructive pulmonary disease, unspecified; F17.200 Nicotine dependence, unspecified, uncomplicated

== ENCOUNTER → 2023-11-13 | Outpatient (REF) | payer OTHER ==
[~2023-11-13] MED LIST changes: +GABA-282
[2023-11-13 18:02] LABS: PSA SCREENING 0.41 NG/ML (< 4.00)
[2023-11-13 18:03] LABS: ALBUMIN 3.8 G/DL (3.2-5.2); ALKALINE PHOSPHATASE 99 U/L (46-116); ALT/SGPT 34 U/L (7.0-40); AST/SGOT 14 U/L (<34); BILIRUBIN,DIRECT < 0.1 MG/DL (<0.4); BILIRUBIN,TOTAL 0.2 MG/DL (0.3-1.2); BLOOD UREA NITROGEN 10 MG/DL (9-23); CALCIUM LEVEL 9.4 MG/DL (8.3-10.6); CARBON DIOXIDE LEVEL 28 MMOL/L (20-31); CHLORIDE LEVEL 109 MMOL/L (98-107); CHOLESTEROL LEVEL 170 MG/DL (<200); CHOLESTEROL RISK RATIO 4.82 (<5); GLOMERULAR FILTRATION RATE > 60.0 (>49); GLUCOSE, FASTING 77 MG/DL (74-106); HDL CHOLESTEROL 35.2 MG/DL (>40); LDL CHOLESTEROL 111.6 MG/DL (<100); NON-HDL-C 134.8 MG/DL; POTASSIUM SERUM 4.5 MMOL/L (3.5-5.1); SODIUM LEVEL 140 MMOL/L (136-145); TRIGLYCERIDES LEVEL 116 MG/DL (<150)
[2023-11-13 18:06] LABS: THYROID STIMULATING HORMONE 0.773 uIU/ML (0.55-4.78)
[2023-11-13 18:42] LABS: HEMOGLOBIN A1c 5.5 % (4.0-6.0)
== END ==
LOC: M LAB REF 16:22
PROVIDERS: ATTEND Nurse Practitioner Family
DX: I10 Essential (primary) hypertension (principal); E78.5 Hyperlipidemia, unspecified; E66.3 Overweight; Z11.9 Encounter for screening for infectious and parasitic diseases, unspecified

== ENCOUNTER → 2023-11-19 | Outpatient (CLI) | payer OTHER | LOC: M RAD 08:54 | PROVIDERS: ATTEND Nurse Practitioner Family | DX: M79.671 Pain in right foot (principal) ==

== ENCOUNTER → 2024-03-03 | Outpatient (REF) | payer OTHER ==
[~2024-03-03] MED LIST changes: +GABA-1172; -GABA-282
[2024-03-03 17:01] LABS: BASO # 0.1 10^3/uL (0.0-0.2); BASO % 0.7 % (0.0-1.0); EOS # 0.1 10^3/uL (0.0-0.5); EOS % 0.9 % (0.0-3.0); HEMATOCRIT 45.6 % (42.0-52.0); HEMOGLOBIN 15.3 g/dl (13.5-17.5); LYMPH # 2.8 10^3/uL (1.5-5.0); LYMPH % 25.6 % (24.0-44.0); MEAN CORPUSCULAR HEMOGLOBIN 30.7 pg (27.0-33.0); MEAN CORPUSCULAR HGB CONC 33.6 g/dl (32.0-36.5); MEAN CORPUSCULAR VOLUME 91.4 fl (80.0-96.0); MONO # 0.9 10^3/uL (0.0-0.8); NEUTROPHILS # 6.9 10^3/uL (1.5-8.5); NEUTROPHILS % 64.3 % (36.0-66.0); PLATELET COUNT, AUTOMATED 243 10^3/uL (150-450); RED BLOOD COUNT 4.99 10^6/uL (4.30-6.10); WHITE BLOOD COUNT 10.7 10^3/uL (4.0-10.0)
[2024-03-03 17:32] LABS: LIPASE 37 U/L (12-53)
[2024-03-03 17:34] LABS: ALKALINE PHOSPHATASE 90 U/L (40-129); ALT/SGPT 18 U/L (7.0-40); AST/SGOT 12 U/L (<34); BILIRUBIN,TOTAL 0.3 MG/DL (0.3-1.2); BLOOD UREA NITROGEN 11 MG/DL (9-23); CALCIUM LEVEL 10.1 MG/DL (8.3-10.6); CARBON DIOXIDE LEVEL 30 MMOL/L (20-31); CHLORIDE LEVEL 105 MMOL/L (98-107); CREATININE FOR GFR 0.78 MG/DL (0.70-1.30); GLOMERULAR FILTRATION RATE > 60.0 (>49); GLUCOSE, FASTING 87 MG/DL (74-106); POTASSIUM SERUM 4.3 MMOL/L (3.5-5.1); SODIUM LEVEL 144 MMOL/L (136-145); TOTAL PROTEIN 7.4 G/DL (5.7-8.2)
== END ==
LOC: M LAB REF 16:26
PROVIDERS: ATTEND Nurse Practitioner Family
DX: R10.9 Unspecified abdominal pain (principal)

== ENCOUNTER → 2024-04-29 | Outpatient (CLI) | payer OTHER | LOC: M RAD 10:51 | PROVIDERS: ATTEND Nurse Practitioner Family | DX: F17.210 Nicotine dependence, cigarettes, uncomplicated (principal); J43.9 Emphysema, unspecified; J47.9 Bronchiectasis, uncomplicated; J94.8 Other specified pleural conditions; R91.1 Solitary pulmonary nodule ==

== ENCOUNTER 2024-05-12 08:51 | Emergency (ER) | payer OTHER ==
[~2024-05-12] VITALS: Ht 177.8 cm; Wt 68.9 kg
[2024-05-12] MEDS ORDERED: LISI10TA22 (09:03)
[2024-05-12] MEDS ORDERED: AMLO1TAB25 (09:03)
[2024-05-12] MEDS ORDERED: ATOR1TAB19 (09:03)
[2024-05-12 10:53] VITALS: BP 135/93; TEMP 99; O2SAT 98
== END 2024-05-12 13:34 | disposition left against medical advice (07) ==
LOC: M ED 08:51
DX: Z53.21 Procedure and treatment not carried out due to patient leaving prior to being seen by health care provider (principal)

== ENCOUNTER → 2024-05-13 | Outpatient (REF) | payer OTHER ==
[~2024-05-13] MED LIST changes: +AMLO1TAB25; +ATOR1TAB19; +LISI10TA22
[2024-05-13 17:46] LABS: LIPASE 42 U/L (12-53)
[2024-05-13 17:48] LABS: ALBUMIN 4.2 G/DL (3.2-5.2); ALKALINE PHOSPHATASE 84 U/L (40-129); ALT/SGPT 20 U/L (7.0-40); AST/SGOT 9 U/L (<34); BILIRUBIN,TOTAL 0.8 MG/DL (0.3-1.2); BLOOD UREA NITROGEN 14 MG/DL (9-23); CALCIUM LEVEL 9.7 MG/DL (8.3-10.6); CARBON DIOXIDE LEVEL 27 MMOL/L (20-31); CHLORIDE LEVEL 106 MMOL/L (98-107); CREATININE FOR GFR 0.84 MG/DL (0.70-1.30); GLOMERULAR FILTRATION RATE > 60.0 (>49); GLUCOSE, FASTING 94 MG/DL (74-106); POTASSIUM SERUM 4.1 MMOL/L (3.5-5.1); SODIUM LEVEL 140 MMOL/L (136-145); TOTAL PROTEIN 7.4 G/DL (5.7-8.2)
[2024-05-13 17:52] LABS: BASO # 0.1 10^3/uL (0.0-0.2); BASO % 0.5 % (0.0-1.0); EOS # 0.1 10^3/uL (0.0-0.5); EOS % 1.2 % (0.0-3.0); HEMATOCRIT 47.4 % (42.0-52.0); HEMOGLOBIN 16.2 g/dl (13.5-17.5); LYMPH # 2.4 10^3/uL (1.5-5.0); LYMPH % 23.9 % (24.0-44.0); MEAN CORPUSCULAR HEMOGLOBIN 30.7 pg (27.0-33.0); MEAN CORPUSCULAR HGB CONC 34.2 g/dl (32.0-36.5); MEAN CORPUSCULAR VOLUME 89.8 fl (80.0-96.0); MONO % 10.1 % (2.0-8.0); NEUTROPHILS # 6.4 10^3/uL (1.5-8.5); NEUTROPHILS % 64.1 % (36.0-66.0); PLATELET COUNT, AUTOMATED 237 10^3/uL (150-450); RED BLOOD COUNT 5.28 10^6/uL (4.30-6.10)
== END ==
LOC: M LAB REF 16:22
PROVIDERS: ATTEND Physician Assistant
DX: K42.9 Umbilical hernia without obstruction or gangrene (principal)

== ENCOUNTER → 2024-06-02 | Outpatient (CLI) | payer OTHER | LOC: M RAD 07:00 | PROVIDERS: ATTEND Physician Assistant | DX: K42.9 Umbilical hernia without obstruction or gangrene (principal) ==

== ENCOUNTER → 2024-06-28 | Outpatient (REF) | payer OTHER ==
[~2024-06-28] MED LIST changes: +ATOR1TAB21 PO; +GABA-1172 PO
[2024-06-28 12:49] LABS: BLOOD UREA NITROGEN 12 MG/DL (9-23); CALCIUM LEVEL 9.9 MG/DL (8.3-10.6); CARBON DIOXIDE LEVEL 28 MMOL/L (20-31); CHLORIDE LEVEL 106 MMOL/L (98-107); GLOMERULAR FILTRATION RATE > 90.0 (>49); GLUCOSE, FASTING 78 MG/DL (74-106); POTASSIUM SERUM 4.3 MMOL/L (3.5-5.1); SODIUM LEVEL 142 MMOL/L (136-145)
[2024-06-28 12:51] LABS: BASO # 0.1 10^3/uL (0.0-0.2); BASO % 0.6 % (0.0-1.0); EOS # 0.1 10^3/uL (0.0-0.5); EOS % 0.8 % (0.0-3.0); HEMATOCRIT 45.5 % (42.0-52.0); HEMOGLOBIN 15.5 g/dl (13.5-17.5); LYMPH # 2.1 10^3/uL (1.5-5.0); LYMPH % 17.6 % (24.0-44.0); MEAN CORPUSCULAR HEMOGLOBIN 31.1 pg (27.0-33.0); MEAN CORPUSCULAR HGB CONC 34.1 g/dl (32.0-36.5); MEAN CORPUSCULAR VOLUME 91.4 fl (80.0-96.0); MONO # 1.2 10^3/uL (0.0-0.8); MONO % 9.9 % (2.0-8.0); NEUTROPHILS # 8.5 10^3/uL (1.5-8.5); NEUTROPHILS % 70.7 % (36.0-66.0); PLATELET COUNT, AUTOMATED 244 10^3/uL (150-450); RED BLOOD COUNT 4.98 10^6/uL (4.30-6.10)
== END ==
LOC: M LAB REF 11:59
PROVIDERS: ATTEND Nurse Practitioner Family
DX: Z01.818 Encounter for other preprocedural examination (principal)

== ENCOUNTER 2024-07-14 09:12 | Day surgery (SDC) | payer OTHER ==
[~2024-07-14] VITALS: Ht 177.8 cm; Wt 83.5 kg
[2024-07-14] MEDS ORDERED: LR 1,000 ML IV SCH (09:55)
[2024-07-14] MEDS ORDERED: LIDOCAINE 2% 100MG/5ML SDV (FOR ANES.) As Ordered ONE (10:13)
[2024-07-14] MEDS ORDERED: ROCURONIUM BROMIDE 50MG/5ML VIAL As Ordered ONE (10:13)
[2024-07-14] MEDS ORDERED: fentaNYL 100 MCG/2 ML INJECTION As Ordered ONE (10:13)
[2024-07-14] MEDS ORDERED: ONDANSETRON 4MG 2ML VIAL As Ordered ONE (10:13)
[2024-07-14] MEDS ORDERED: ACETAMINOPHEN 1000MG/100ML IV BAG As Ordered ONE (10:13)
[2024-07-14] MEDS ORDERED: MIDAZOLAM INJ 2MG/2ML VIAL As Ordered ONE (10:13)
[2024-07-14] MEDS ORDERED: propofoL 200 MG/20 ML VIAL As Ordered ONE (10:13)
[2024-07-14] MEDS: ceFAZolin SOD 2 GM IV ONCE IV ONE (11:54)
[2024-07-14] MEDS ORDERED: KETOROLAC 30 MG/ML 1ML VIAL As Ordered ONE (12:15)
[2024-07-14] MEDS ORDERED: SUGAMMADEX SODIUM 500 MG/5 ML VIAL (BRIDION) As Ordered ONE (12:15)
[2024-07-14] MEDS ORDERED: hydrALAZINE 20MG/ML 1ML VIAL As Ordered ONE (12:27)
[2024-07-14] MEDS ORDERED: GLYCOPYRROLATE INJ 0.2 MG/ML 2 ML VIAL As Ordered ONE (12:40)
[2024-07-14] MEDS ORDERED: fentaNYL 100 MCG/2 ML INJECTION IV PRN (12:45)
[2024-07-14] MEDS ORDERED: ONDANSETRON 4MG 2ML VIAL IV PRN (12:45)
[2024-07-14] MEDS ORDERED: MORPHINE 2 MG/ML 1ML VIAL IV PRN (12:45)
[2024-07-14] MEDS: oxyCODONE 5MG TAB PO PRN (13:10)
[2024-07-14] MEDS ORDERED: NORCO, ANEXSIA 5/325MG TABLET (HYDROcodone/ACETAMINOPHEN) PO PRN (14:10)
[2024-07-14 14:19] VITALS: BP 157/85; TEMP 97.9; O2SAT 96
== END 2024-07-14 14:30 | disposition home or self-care (01) ==
LOC: M SDC 09:12
PROVIDERS: ATTEND Surgery
DX: K42.9 Umbilical hernia without obstruction or gangrene (principal); I10 Essential (primary) hypertension; J43.9 Emphysema, unspecified; E78.00 Pure hypercholesterolemia, unspecified; K21.9 Gastro-esophageal reflux disease without esophagitis; F17.210 Nicotine dependence, cigarettes, uncomplicated; Z79.899 Other long term (current) drug therapy; Z79.82 Long term (current) use of aspirin
CPT/HCPCS: 49591; 93005; C1781; J0131; J0360; J0665; J0690; J1100; J1596; J1885; J2250; J2405; J3010; S2900

== ENCOUNTER 2024-11-22 13:14 | Emergency (ER) | payer OTHER ==
[~2024-11-22] VITALS: Ht 177.8 cm; Wt 85.7 kg
[2024-11-22 14:58] VITALS: BP 170/95; TEMP 97.8; O2SAT 98
== END 2024-11-22 15:03 | disposition home or self-care (01) ==
LOC: M ED 13:14
DX: S60.221A Contusion of right hand, initial encounter (principal); W22.8XXA Striking against or struck by other objects, initial encounter; Y92.009 Unspecified place in unspecified non-institutional (private) residence as the place of occurrence of the external cause; Y93.9 Activity, unspecified; Y99.9 Unspecified external cause status; I10 Essential (primary) hypertension; F17.200 Nicotine dependence, unspecified, uncomplicated; Z79.899 Other long term (current) drug therapy

== ENCOUNTER → 2024-12-15 | Outpatient (REF) | payer OTHER ==
[2024-12-15 19:24] LABS: BASO # 0.1 10^3/uL (0.0-0.2); BASO % 0.4 % (0.0-1.0); EOS # 0.1 10^3/uL (0.0-0.5); EOS % 0.6 % (0.0-3.0); LYMPH # 2.4 10^3/uL (1.5-5.0); LYMPH % 21.8 % (24.0-44.0); MONO # 0.8 10^3/uL (0.0-0.8); MONO % 7.0 % (2.0-8.0); NEUTROPHILS # 7.8 10^3/uL (1.5-8.5); NEUTROPHILS % 69.9 % (36.0-66.0); PLATELET COUNT, AUTOMATED 280 10^3/uL (150-450)
[2024-12-15 19:28] LABS: PSA SCREENING 0.32 NG/ML (< 4.00)
[2024-12-15 19:32] LABS: CALCIUM LEVEL 9.4 MG/DL (8.3-10.6); CARBON DIOXIDE LEVEL 27 MMOL/L (20-31); CHLORIDE LEVEL 106 MMOL/L (98-107); CHOLESTEROL LEVEL 184 MG/DL (<200); CHOLESTEROL RISK RATIO 5.38 (<5); CREATININE FOR GFR 0.77 MG/DL (0.70-1.30); GLOMERULAR FILTRATION RATE > 90.0 (>49); LDL CHOLESTEROL 127.2 MG/DL (<100); MAGNESIUM LEVEL 2.0 MG/DL (1.8-2.4); NON-HDL-C 149.8 MG/DL; POTASSIUM SERUM 4.4 MMOL/L (3.5-5.1); SODIUM LEVEL 139 MMOL/L (136-145); TRIGLYCERIDES LEVEL 113 MG/DL (<150)
[2024-12-15 19:34] LABS: VITAMIN B12 LEVEL 527 PG/ML (211-911)
[2024-12-15 20:07] LABS: ESTIMATED AVERAGE GLUCOSE 114.0 MG/DL (60-110)
== END ==
LOC: M LAB REF 13:50
PROVIDERS: ATTEND Nurse Practitioner Family
DX: E66.3 Overweight (principal); R25.2 Cramp and spasm; D72.829 Elevated white blood cell count, unspecified; Z12.5 Encounter for screening for malignant neoplasm of prostate

== ENCOUNTER → 2025-01-05 | Outpatient (CLI) | payer OTHER | LOC: M RAD 10:17 | PROVIDERS: ATTEND Nurse Practitioner Family | DX: R25.2 Cramp and spasm (principal); I72.4 Aneurysm of artery of lower extremity; I70.203 Unspecified atherosclerosis of native arteries of extremities, bilateral legs ==

== ENCOUNTER → 2025-01-12 | Outpatient (CLI) | payer OTHER | LOC: M PLARAD 13:07 | PROVIDERS: ATTEND Nurse Practitioner Family | DX: M54.41 Lumbago with sciatica, right side (principal); M54.42 Lumbago with sciatica, left side; G89.29 Other chronic pain; M47.816 Spondylosis without myelopathy or radiculopathy, lumbar region; M47.815 Spondylosis without myelopathy or radiculopathy, thoracolumbar region; M47.817 Spondylosis without myelopathy or radiculopathy, lumbosacral region ==

== ENCOUNTER → 2025-01-27 | Outpatient (REF) | payer OTHER ==
[2025-01-27 16:46] LABS: BASO # 0.1 10^3/uL (0.0-0.2); BASO % 0.5 % (0.0-1.0); EOS # 0.1 10^3/uL (0.0-0.5); EOS % 0.5 % (0.0-3.0); LYMPH # 2.9 10^3/uL (1.5-5.0); LYMPH % 18.9 % (24.0-44.0); MONO # 1.2 10^3/uL (0.0-0.8); MONO % 7.8 % (2.0-8.0); NEUTROPHILS # 10.9 10^3/uL (1.5-8.5); NEUTROPHILS % 72.0 % (36.0-66.0); PLATELET COUNT, AUTOMATED 299 10^3/uL (150-450)
[2025-01-27 16:52] LABS: ALT/SGPT 25 U/L (7.0-40); AST/SGOT 25 U/L (<34); CALCIUM LEVEL 9.7 MG/DL (8.3-10.6); CARBON DIOXIDE LEVEL 26 MMOL/L (20-31); CHLORIDE LEVEL 106 MMOL/L (98-107); CHOLESTEROL LEVEL 160 MG/DL (<200); CHOLESTEROL RISK RATIO 4.54 (<5); CREATININE FOR GFR 0.88 MG/DL (0.70-1.30); GLOMERULAR FILTRATION RATE > 90.0 (>49); LDL CHOLESTEROL 102.4 MG/DL (<100); NON-HDL-C 124.8 MG/DL; POTASSIUM SERUM 4.2 MMOL/L (3.5-5.1); SODIUM LEVEL 143 MMOL/L (136-145); TRIGLYCERIDES LEVEL 112 MG/DL (<150)
== END ==
LOC: M LAB REF 16:23
PROVIDERS: ATTEND Nurse Practitioner Family
DX: E78.5 Hyperlipidemia, unspecified (principal); I73.9 Peripheral vascular disease, unspecified

== ENCOUNTER → 2025-02-08 | Outpatient (CLI) | payer OTHER ==
[~2025-02-08] MED LIST changes: +ISOVUE-370 76% 100 ML VIAL As Ordered ONE
== END ==
LOC: M RAD 08:09
PROVIDERS: ATTEND Nurse Practitioner Family
DX: I73.9 Peripheral vascular disease, unspecified (principal); I87.2 Venous insufficiency (chronic) (peripheral)
CPT/HCPCS: 73706; Q9967

== ENCOUNTER → 2025-02-28 | Outpatient (CLI) | payer OTHER | LOC: M RAD 07:20 | PROVIDERS: ATTEND Nurse Practitioner Family | DX: I70.90 Unspecified atherosclerosis (principal); J43.2 Centrilobular emphysema; R91.1 Solitary pulmonary nodule | CPT/HCPCS: 71275; Q9967 ==

== ENCOUNTER → 2025-03-02 | Outpatient (REF) | payer OTHER ==
[~2025-03-02] MED LIST changes: -ISOVUE-370 76% 100 ML VIAL As Ordered ONE
[2025-03-02 14:30] LABS: BASO # 0.1 10^3/uL (0.0-0.2); BASO % 0.5 % (0.0-1.0); EOS # 0.1 10^3/uL (0.0-0.5); EOS % 0.8 % (0.0-3.0); LYMPH # 2.2 10^3/uL (1.5-5.0); LYMPH % 20.5 % (24.0-44.0); MONO # 0.8 10^3/uL (0.0-0.8); MONO % 7.5 % (2.0-8.0); NEUTROPHILS # 7.5 10^3/uL (1.5-8.5); NEUTROPHILS % 70.3 % (36.0-66.0); PLATELET COUNT, AUTOMATED 275 10^3/uL (150-450)
[2025-03-02 14:35] LABS: CHOLESTEROL LEVEL 156.0 MG/DL (<200); CHOLESTEROL RISK RATIO 4.71 (<5); LDL CHOLESTEROL 94.3 MG/DL (<100); NON-HDL-C 122.9 MG/DL; TRIGLYCERIDES LEVEL 143.0 MG/DL (<150)
== END ==
LOC: M LAB REF 14:05
PROVIDERS: ATTEND Nurse Practitioner Family
DX: D72.829 Elevated white blood cell count, unspecified (principal); E78.5 Hyperlipidemia, unspecified